=== PATIENT | male | born 1955 | race Caucasian/White ===

== ENCOUNTER 2022-07-18 13:55 | Outpatient (REF) | payer MEDICARE, BC, SELFPAY ==
[2022-07-18 14:49] LABS: Chloride* 106 mmol/L (96-114); Potassium* 4.2 mmol/L (3.6-5.1); Sodium* 139 mmol/L (135-149)
[2022-07-18 14:52] LABS: Blood Urea Nitrogen* 21 mg/dL (7-30); Carbon Dioxide* 24 mmol/L (20-32); Creatinine* 0.8 mg/dL (0.5-1.5); Estimated Glomerular Filt Rate 97 ml/min
[2022-07-18 14:53] LABS: Calcium* 9.5 mg/dL (8.4-10.6); Glucose* 125 mg/dL (60-115)
== END 2022-07-18 13:56 | disposition home or self-care (01) ==
LOC: NPINS 13:55
PROVIDERS: PCP Family Medicine
DX: I50.22 Chronic systolic (congestive) heart failure (principal); Z79.899 Other long term (current) drug therapy
CPT/HCPCS: 80048; 85651; 86140

== ENCOUNTER 2023-04-28 11:16 | Outpatient (CLI) | payer MEDICARE, BC, SELFPAY ==
--- NOTE | 2023-04-28 12:24 | W.ANESCHARGE ---
Anesthesia Charges Start Date/Time Anesthesia Start Date: 04/28/23 Anesthesia Start Time: 11:56 Stop Date/Time Anesthesia Stop Date: 04/28/23 Anesthesia Stop Time: 12:23
--- NOTE | 2023-04-28 13:13 | W.ANESCHARGE ---
Anesthesia Charges Start Date/Time Anesthesia Start Date: 04/28/23 Anesthesia Start Time: 11:56 Stop Date/Time Anesthesia Stop Date: 04/28/23 Anesthesia Stop Time: 12:23
== END 2023-04-28 11:17 | disposition home or self-care (01) ==
LOC: OP CLINIC 11:17
PROVIDERS: PCP Family Medicine; Visit Provider Internal Medicine
DX: Z12.11 Encounter for screening for malignant neoplasm of colon (principal); K63.5 Polyp of colon; K57.30 Diverticulosis of large intestine without perforation or abscess without bleeding; Z86.010 Personal history of colon polyps
CPT/HCPCS: 00811; 45385; 88305; J2704

== ENCOUNTER 2023-05-06 12:13 | Outpatient (CLI) | payer MEDICARE, BC, SELFPAY | END 2023-05-06 12:14 | disposition home or self-care (01) | PROVIDERS: PCP Family Medicine; Visit Provider Family Medicine | DX: I25.10 Atherosclerotic heart disease of native coronary artery without angina pectoris (principal); Z12.5 Encounter for screening for malignant neoplasm of prostate | CPT/HCPCS: 80048; 80061; G0103 ==

== ENCOUNTER 2023-08-04 09:24 | Outpatient (CLI) | payer MEDICARE, BC, SELFPAY | END 2023-08-04 09:25 | disposition home or self-care (01) | LOC: LKVREF 09:26 | PROVIDERS: PCP Family Medicine; Visit Provider Family Medicine | DX: I31.1 Chronic constrictive pericarditis (principal); I50.9 Heart failure, unspecified | CPT/HCPCS: 80048 ==

== ENCOUNTER 2023-08-30 11:33 | Emergency (ER) | payer MEDICARE, BC, SELFPAY ==
[2023-08-30 11:40] VITALS: BP 142/75; PULSE 96; RESP 18; TEMP 37.1; O2SAT 98; BMI 34.9
--- NOTE | 2023-08-30 11:58 | ED.GENADULT ---
HPI - General Adult General Chief complaint: Unspecified Complaint, Adult Stated complaint: Left side rash, painful Time Seen by Provider: 08/30/23 11:35 History of Present Illness HPI narrative: This 68-year-old male comes in with painful rash in the left abdomen this started about 3 days ago. He does not have any other symptoms and arrives with normal vital signs. Related Data Home Medications ?Medication ?Instructions ?Recorded ?Confirmed folic acid 1 mg tablet 1 mg PO DAILY 12/03/21 08/04/23 methotrexate sodium 2.5 mg tablet 2.5 mg PO .Every 7 Days 12/03/21 08/04/23 aspirin 81 mg tablet,delayed 81 mg PO QDAY 03/19/22 08/04/23 release (Adult Aspirin Regimen) sacubitril 24 mg-valsartan 26 mg 1 tab PO BID 05/06/23 08/04/23 tablet (Entresto) Previous Rx's ?Medication ?Instructions ?Recorded amlodipine 2.5 mg tablet 2.5 mg PO QDAY #90 tabs 05/06/23 metoprolol succinate 100 mg 150 mg (1.5 x 100 mg) PO QDAY #135 05/06/23 tablet,extended release 24 hr tabs ketorolac 10 mg tablet 10 mg PO Q8H 5 days #15 tabs 08/30/23 valacyclovir 1 gram tablet 1,000 mg PO TID #30 tabs 08/30/23 (Valtrex) Allergies Allergy/AdvReac Type Severity Reaction Status Date / Time No Known Allergies Allergy Unverified 08/04/23 08:47 Review of Systems Status of ROS: Reports: 10 or more systems reviewed and unremarkable except as noted in History and below Narrative: Constitutional: No fevers, no weight gain or loss. Eyes: No discharge. No vision changes. HENT: No congestion, no sore throat, no ear pain. Cardiovascular: No chest pain, no palpitations. Respiratory: No shortness of breath, no wheezes, no cough. Gastrointestinal: No abdominal pain, no vomiting, no diarrhea. Genitourinary: No dysuria, no hematuria. Musculoskeletal: Normal range of motion. Skin: No pruritis. Painful rash extending from the left flank around to the midline of his abdomen. Neurological: No dizziness, weakness, sensory change, speech change. Endo/Heme/Allergies: No bruising or bleeding. No polydipsia. Pysch: no suicidality, no anxiety, no insomnia. All other systems reviewed and are negative. [facility] Social History Smoking Status: Never smoker Little interest or pleasure in doing things: not at all Feeling down, depressed, or hopeless: not at all Exam Narrative: Exam Narrative: Constitutional: Well-developed, well-nourished, no acute distress. HEENT: Normocephalic, atraumatic. Neck: Normal range of motion. Nontender. Supple. Heart: Intact distal pulses. Lungs: No chest discomfort. No wheezes, rhonchi, or rales. Abdomen: Nontender. Back: Normal range of motion. Extremities: Normal range of motion. No injury. Skin: Intact. Rash following a dermatome in the left flank into the abdomen but not crossing the midline, typical of shingles. Neurologic: No altered sensation. No weakness. Alert and oriented. Psychiatric: No suicidality. No anxiety or depression. No insomnia. Nursing notes and vitals signs are reviewed. Const: Vital Signs, click to edit/add: Vital Signs - 24 hr 08/30/23 11:40 Temperature 98.8 F Pulse Rate [Right Pulse Oximeter] 96 Respiratory Rate 18 Blood Pressure [Ri ght Upper Arm] 142/75 H Pulse Oximetry 98 Oxygen Delivery Me thod Room Air Course Vital Signs Vital signs: Initial Vital Signs Temperature 98.8 F 08/30/23 11:40 Temperature Source Temporal Artery Scan 08/30/23 11:40 Pulse Rate 96 08/30/23 11:40 Pulse Rhythm Regular 08/30/23 11:40 Pulse Strength 3+ Normal 08/30/23 11:40 Respiratory Rate 18 08/30/23 11:40 Blood Pressure 142/75 H 08/30/23 11:40 Blood Pressure Mean 97 08/30/23 11:40 Blood Pressure Position Sitting 08/30/23 11:40 Pulse Oximetry 98 08/30/23 11:40 Oxygen Delivery Method Room Air 08/30/23 11:40 Vital Signs Temperature 98.8 F 08/30/23 11:40 Pulse Rate 96 08/30/23 11:40 Respiratory Rate 18 08/30/23 11:40 Blood Pressure 142/75 H 05/25/24 11:40 Pulse Oximetry 98 08/30/23 11:40 Oxygen Delivery Method Room Air 08/30/23 11:40 Temperature 98.8 F 08/30/23 11:40 Pulse Rate 96 08/30/23 11:40 Respiratory Rate 18 08/30/23 11:40 Blood Pressure 142/75 H 08/30/23 11:40 Pulse Oximetry 98 08/30/23 11:40 Oxygen Delivery Method Room Air 08/30/23 11:40 Medical Decision Making MDM Narrative Medical decision making narrative: This patient has an outbreak of shingles. He states that he did get they varicella vaccination. He has no other symptoms and reports pain along with a rash but states he is able to sleep okay at night as the pain is not that severe. He received a prescription Valacyclovir and Toradol. Discharge Plan Discharge Clinical Impression: Herpes zoster dermatitis Patient Disposition: Home, Self-Care Condition: Unchanged Additional Instructions: Take medications as prescribed. Follow up with MD or return if worsening. Prescriptions: New ketorolac 10 mg tablet 10 mg PO Q8H 5 Days Qty: 15 0RF valacyclovir [Valtrex] 1 gram tablet 1,000 mg PO TID Qty: 30 2RF No Action folic acid 1 mg tablet 1 mg PO DAILY methotrexate sodium 2.5 mg tablet 2.5 mg PO .Every 7 Days Entresto 24-26 mg tablet 1 tab PO BID metoprolol succinate 100 mg tablet extended release 24 hr 150 mg PO QDAY Qty: 135 3RF amlodipine 2.5 mg tablet 2.5 mg PO QDAY Qty: 90 3RF aspirin [Adult Aspirin Regimen] 81 mg tablet,delayed release (DR/EC) 81 mg PO QDAY Follow Up/Referrals: Ousmane Gamez MD [Primary Care Provider] - Stand Alone Forms: [facility] Info Instructions
== END 2023-08-30 12:24 | disposition home or self-care (01) ==
PROVIDERS: Emergency Provider Emergency Medicine Emergency Medical Services; PCP Family Medicine
DX: B02.9 Zoster without complications (principal)
CPT/HCPCS: 99282; 99283; 99284

== ENCOUNTER 2023-10-13 16:06 | Outpatient (CLI) | payer MEDICARE, BC, SELFPAY | END 2023-10-13 16:07 | disposition home or self-care (01) | PROVIDERS: PCP Family Medicine; Visit Provider Family Medicine | DX: I10 Essential (primary) hypertension (principal); Z67.10 Type A blood, Rh positive; Z01.84 Encounter for antibody response examination | CPT/HCPCS: 80053; 86850; 86900; 86901 ==

== ENCOUNTER 2023-11-10 10:23 | Outpatient (CLI) | payer MEDICARE, BC, SELFPAY | END 2023-11-10 10:24 | disposition home or self-care (01) | LOC: LKVREF 10:26 | PROVIDERS: PCP Family Medicine; Visit Provider Family Medicine | DX: I10 Essential (primary) hypertension (principal) | CPT/HCPCS: 80048 ==

== ENCOUNTER 2024-05-28 13:03 | Outpatient (CLI) | payer MEDICARE, BC, SELFPAY | END 2024-05-28 13:04 | disposition home or self-care (01) | LOC: LKVREF 13:05 | PROVIDERS: PCP Family Medicine; Visit Provider Family Medicine | DX: I10 Essential (primary) hypertension (principal) | CPT/HCPCS: 80048 ==